=== PATIENT | female | born 1985 | race African-American/Black ===

== ENCOUNTER → 2019-06-09 | Outpatient (CLI) | payer OTHER ==
[~2019-06-09] MED LIST: CETI10TA22 PO; CYCL10TA2 PO
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
== END ==
LOC: PNCL 13:42
PROVIDERS: ATTEND Anesthesiology
DX: M79.605 Pain in left leg (principal); M54.5 Low back pain; Z91.040 Latex allergy status
CPT/HCPCS: G0463